=== PATIENT | female | born 1955 | race Caucasian/White ===

== ENCOUNTER 2024-08-16 11:51 | Emergency (ER) | payer OTHER ==
[~2024-08-16] VITALS: Ht 160 cm; Wt 75.0 kg
[2024-08-16 11:53] VITALS: O2SAT 100
[2024-08-16] MEDS: ACETAMINOPHEN 325MG TABLET PO ONE (16:01)
[2024-08-16 16:28] VITALS: BP 148/62; PULSE 81; RESP 16; TEMP 36.7; O2SAT 100
== END 2024-08-16 16:39 | disposition home or self-care (01) ==
LOC: ER 11:51
DX: S09.8XXA Other specified injuries of head, initial encounter (principal); M25.562 Pain in left knee; I10 Essential (primary) hypertension; Z86.73 Personal history of transient ischemic attack (TIA), and cerebral infarction without residual deficits; Z88.5 Allergy status to narcotic agent; W01.0XXA Fall on same level from slipping, tripping and stumbling without subsequent striking against object, initial encounter; Y93.89 Activity, other specified; Y92.89 Other specified places as the place of occurrence of the external cause; Y99.8 Other external cause status
CPT/HCPCS: 70486; 73130; 73562; 99284